=== PATIENT | male | born 1980 | race Caucasian/White ===

== ENCOUNTER 2018-01-10 00:51 | Emergency (ER) | payer OTHER ==
[~2018-01-10] VITALS: Ht 188 cm; Wt 86.4 kg
[2018-01-10] MEDS ORDERED: TETanus/Pertussis (Acell)/Diphther VAC/PF (Tdap-Adult) 0.5ml syringe IMVAC ONE (01:10)
[2018-01-10] MEDS ORDERED: bacitracin 15gm ointment TP ONE (01:10)
[2018-01-10] MEDS ORDERED: normal saline 1000ML IV soln IVB ONE (01:10)
[2018-01-10] MEDS ORDERED: ceFAZolin 1GM/D5W- ADD-VANTAGE 50 ML IV ONE (01:10)
[2018-01-10] MEDS ORDERED: CefTRIAXone/D5W-Rocephin 1gm 50 ML IV ONE (01:10)
[2018-01-10 01:44] LABS: PROTHROMBIN TIME 10.2 SECONDS (9.0-12.0)
[2018-01-10 02:03] LABS: ALANINE AMINOTRANSFERASE 14 U/L (12-78); ALBUMIN 3.4 G/DL (3.4-5.0); ALBUMIN/GLOBULIN RATIO 1.1 (1.1-1.5); ALKALINE PHOSPHATASE 61 IU/L (46-116); ANION GAP 21 (8-16); ASPARTATE AMINO TRANSFERASE 18 U/L (10-37); BILIRUBIN,TOTAL 0.2 MG/DL (0.1-1.0); BLOOD UREA NITROGEN 11 MG/DL (7-18); CALCIUM 8.7 MG/DL (8.5-10.1); CHLORIDE 104 MMOL/L (99-107); CREATINE KINASE 180 U/L (39-308); CREATININE 1.57 MG/DL (0.60-1.10); ETHANOL < 0.010 GM/DL (0.0-0.010); GLUCOSE 159 MG/DL (70-104); POTASSIUM 3.5 MMOL/L (3.5-5.1); SODIUM 143 MMOL/L (135-145); TOTAL CARBON DIOXIDE 18.3 MMOL/L (24-32); TOTAL PROTEIN 6.6 G/DL (6.4-8.2); TROPONIN I < 0.04 NG/ML (0.0-0.05); eGFR 50 ML/MIN
[2018-01-10 02:04] LABS: BASOPHILS # (AUTO) 0.1 X10'3 (0-0.2); BASOPHILS % (AUTO) 0.5 % (0-1); EOSINOPHILS # (AUTO) 0.3 X10'3 (0-0.9); EOSINOPHILS % (AUTO) 1.5 % (0-6); HEMATOCRIT 41.6 % (42.0-52.0); HEMOGLOBIN 14.1 g/dl (14.0-17.9); LYMPHOCYTES # (AUTO) 5.2 X10'3 (1.1-4.8); LYMPHOCYTES % (AUTO) 25.5 % (21-51); MEAN CORPUSCULAR HEMOGLOBIN 30.2 PG (27.0-31.0); MEAN CORPUSCULAR HGB CONC 33.9 % (33.0-36.5); MEAN CORPUSCULAR VOLUME 88.9 FL (78-98); MEAN PLATELET VOLUME 8.5 FL (7.4-10.4); MONOCYTES # (AUTO) 0.6 X10'3 (0-0.9); NEUTROPHILS # (AUTO) 14.2 X10'3 (1.8-7.7); NEUTROPHILS % (AUTO) 69.5 % (42-75); PLATELET COUNT 292 X10'3 (140-440); RED BLOOD COUNT 4.68 X10'6 (4.70-6.10); RED CELL DISTRIBUTION WIDTH 12.8 % (11.5-14.5); WHITE BLOOD COUNT 20.5 X10'3 (4.5-11.0)
[2018-01-10 02:13] LABS: PLATELET ESTIMATE NORMAL; TOTAL CELLS COUNTED 100
[2018-01-10] MEDS ORDERED: AMOX500C2 PO (02:44)
[2018-01-10 03:30] LABS: CLARITY,URINE CLEAR (Clear); COLOR,URINE YELLOW (Yellow); GLUCOSE, URINE NEGATIVE (Neg); KETONES,URINE NEGATIVE (Neg); LEUKOCYTE ESTERASE ,URINE NEGATIVE (Neg); NITRITES, URINE NEGATIVE (Neg); OCCULT BLOOD,URINE NEGATIVE (Neg); PH,URINE 5.5 (4.8-8.0); PROTEIN,URINE TRACE mg/dl (Neg); UROBILINOGEN,URINE 0.2 E.U/dL (0.2-1.0)
[2018-01-10 03:38] LABS: UA COLLECTION TYPE CLN CATCH MIDSTREAM
[2018-01-10 03:39] LABS: BACTERIA,URINE FEW /HPF (Neg); RBC,URINE 0-2 /HPF (0-2); SQUAMOUS EPITHELIAL CELL,UR FEW /LPF (FEW); WBC,URINE 0-4 /HPF (0-4)
[2018-01-10 03:54] LABS: URINE AMPHETAMINE SCREEN POSITIVE (Neg); URINE BARBITUATE SCREEN NEGATIVE (Neg); URINE BENZODIAZEPINES SCREEN NEGATIVE (Neg); URINE CANNABINOID SCREEN NEGATIVE (Neg); URINE COCAINE SCREEN NEGATIVE (Neg); URINE METHADONE SCREEN NEGATIVE (Neg); URINE OPIATE SCREEN NEGATIVE (Neg); URINE PHENCYCLIDINE SCREEN NEGATIVE (Neg)
[2018-01-10 04:52] VITALS: BP 111/69
== END 2018-01-10 04:57 | disposition home or self-care (01) ==
LOC: ER 00:53
DX: S42.402A Unspecified fracture of lower end of left humerus, initial encounter for closed fracture (principal); S81.852A Open bite, left lower leg, initial encounter; S00.81XA Abrasion of other part of head, initial encounter; Z59.0 Homelessness; Z56.0 Unemployment, unspecified; Z79.899 Other long term (current) drug therapy; W54.0XXA Bitten by dog, initial encounter; Y93.89 Activity, other specified; Y92.89 Other specified places as the place of occurrence of the external cause; Y99.8 Other external cause status
CPT/HCPCS: 29105; 36415; 70450; 71045; 73030; 73070; 80053; 80305; 80320; 81001; 82550; 84484; 85025; 85610; 90471; 90715; 96365; 96368; 99285; A4565; A6449; J0690; J0696; J7030

== ENCOUNTER 2018-01-17 15:22 | Outpatient (CLI) | payer OTHER ==
[~2018-01-17 15:22] MED LIST: AMOX500C2 PO
[2018-01-17 15:35] VITALS: BP 139/89
== END 2018-01-17 16:35 | disposition home or self-care (01) ==
LOC: ORTHO 15:22
PROVIDERS: ATTEND Nurse Practitioner Family
DX: S42.432A Displaced fracture (avulsion) of lateral epicondyle of left humerus, initial encounter for closed fracture (principal); F17.210 Nicotine dependence, cigarettes, uncomplicated; F12.90 Cannabis use, unspecified, uncomplicated; Z59.0 Homelessness; Z56.0 Unemployment, unspecified; X58.XXXA Exposure to other specified factors, initial encounter; Y93.89 Activity, other specified; Y92.89 Other specified places as the place of occurrence of the external cause; Y99.8 Other external cause status
CPT/HCPCS: 99214; A6446; A6449